=== PATIENT | female | born 1980 | race Caucasian/White ===

== ENCOUNTER 2016-09-19 06:30 | Emergency (ER) | payer MEDICAID ==
[~2016-09-19] VITALS: Ht 160 cm; Wt 75.5 kg
[~2016-09-19 06:30] MED LIST: AUG875 PO; ONDA4TAB8 PO
[2016-09-19 06:33] VITALS: Ht 160 cm; Wt 75.5 kg
[2016-09-19] MEDS ORDERED: TETRACAINE 0.5% 4 ML OPH RIGHT EYE ONE (07:00)
[2016-09-19] MEDS ORDERED: HYDROCODONE/APAP (5/325) TAB PO ONE (07:00)
[2016-09-19] MEDS ORDERED: FLUORESCEIN STRIP RIGHT EYE ONE (07:00)
--- NOTE | 2016-09-19 07:10 | ERD ---
ER Documentation Chief Complaint Date/Time DATE: 09/19/16 TIME: 07:07 Chief Complaint PT presents with R eye erythema and pain after eye injury 3 days ago. HPI Is a 35-year-old female who presents the emergency department today complaining of right eye pain and redness for the past 3 days. Patient states that she was doing some stretching material to the underside of a chair when she accidentally let go and it hit her in the eye. States she has some blurred vision. Denies any previous trauma, fevers or chills ROS All systems reviewed and are negative except as per history of present illness. Medications Home Meds Active Scripts Naproxen* (Naprosyn*) 500 Mg Tablet, 500 MG PO BID Y for PAIN AND/OR INFLAMMATION, #30 TAB Prov:MISSY COULTER PA-C 09/19/16 Hydrocodone/Acetaminophen (Downs 5-325 Tablet) 1 Each Tablet, 1 TAB PO Q6H Y for PAIN, #7 TAB Prov:MISSY COULTER PA-C 09/19/16 Erythromycin (Erythromycin Opth) 3.5 Gm Oint..gm., 1 APPLIC RIGHT EYE QID for 7 Days, #1 Prov:MISSY COULTER PA-C 09/19/16 Ondansetron Hcl* (Zofran*) 4 Mg Tablet, 4 MG PO Q6H Y for NAUSEA AND OR VOMITING for 10 Days, TAB Prov:DONI DIAZHAMMAD F. 12/15/13 Amoxicillin-Clavulanate K* (Augmentin*) 875 Mg Tab, 875 MG PO BID for 7 Days, TAB Prov:CHRISTIAN DIAZD F. 12/15/13 Allergies Allergies: Coded Allergies: No Known Drug Allergy (Verified Allergy, Unknown, 12/11/13) PMhx/Soc Medical and Surgical Hx: pt denies Medical Hx, pt denies Surgical Hx History of Surgery: No Anesthesia Reaction: No Hx Neurological Disorder: No Hx Respiratory Disorders: No Hx Cardiac Disorders: No Hx Psychiatric Problems: No Hx Miscellaneous Medical Probl: No Hx Alcohol Use: No Hx Substance Use: No Hx Tobacco Use: No Physical Exam Vitals Vital Signs Date Time Temp Pulse Resp B/P Pulse Ox O2 Delivery O2 Flow Rate FiO2 09/19/16 06:33 98.9 76 18 123/77 97 Physical Exam Const: No acute distress Head: Atraumatic Eyes: Right eye with conjunctival erythema. PERRLA. EOM intact. Light sensitive. ENT: Normal External Ears, Nose and Mouth. Neck: Full range of motion..~ No meningismus. Resp: Clear to auscultation bilaterally Cardio: Regular rate and rhythm, no murmurs Skin: No petechiae or rashes Neur: Awake and alert Psych: Normal Mood and Affect Results 24 hrs Current Medications Medications (Trade) Dose Ordered Sig/Cristóbal Route PRN Reason Start Time Stop Time Status Last Admin Dose Admin Tetracaine HCl (Tetracaine 0.5% Steri-Unit Sobia) 1 drop ONCE ONCE RIGHT EYE 09/19/16 07:00 09/19/16 07:01 DC 09/19/16 07:05 Fluorescein Sodium (Yrkzs-X-Ugiad) 1 strip ONCE ONCE RIGHT EYE 09/19/16 07:00 09/19/16 07:01 DC 09/19/16 07:05 Acetaminophen/ Hydrocodone Bitart (Downs (5/325)) 1 tab ONCE ONCE PO 09/19/16 07:00 09/19/16 07:01 DC 09/19/16 07:05 DIAGNOSTIC IMAGING REPORT Patient: CLARE PAINTER : 1980 Age: 35 Sex: F MR #: [id number] DOS: 09/19/16 0705 Ordering MD: MISSY COULTER PA-C Location: [facility] Room/Bed: PROCEDURE: Ultrasound soft tissue non-vascular. CLINICAL INDICATION: trauma. TECHNIQUE: Targeted sonographic evaluation of the area of clinical interest in the right orbit was performed using a high-frequency transducer using razo scale techniques. COMPARISON: None. FINDINGS: Targeted sonographic evaluation of the right orbit demonstrates no definite foreign body. The orbit appears intact. No sonographic evidence of retinal detachment. IMPRESSION: No foreign body is detected by ultrasound. No sonographic evidence of retinal detachment. RPTAT: EE .Jeramy Crawford MD, MD Date Time Electronically viewed and signed by .Jeramy Crawford MD, MD on 09/19/2016 07:50 .C/ CC: MISSY COULTER PA-C Procedures/MDM This a 35-year-old female who presents to the emergency department today complaining of right eye pain and redness for the past 3 days after hitting herself in the eye with some stretchy material that she was going to the underside of the chair. Given patient's trauma did obtain a soft tissue ultrasound of the patient's right eye as well as perform visual acuity and a floor seen eye stain with a Boyle lamp Visual acuity right eye 20/50 Left eye 20/50 Bilateral 20/50 Soft tissue ultrasound shows no foreign body detected by ultrasound. There is no sonographic evidence of retinal detachment. Orbits appear intact. Flouroscein eye stain with a Boyle lamp shows possible corneal abrasion along the medial aspect. Patient given a prescription for erythromycin. Patient was also given Downs here in the emergency department and pain improved. She will be given a short course for home in addition to Naprosyn. She is instructed to make an appointment at [facility]. I do have low suspicion for acute narrow angle glaucoma, hyphema, globe rupture, conjunctivitis, foreign body, uveitis At this time the patient is stable for discharge and outpatient management. Patient should follow up with their PCP in the next 1-2 days. They may return to the emergency department sooner for any persistent or worsening of symptoms. Patient understood and agreed with the plan. Departure Diagnosis: Primary Impression: Eye injury Encounter type: initial encounter Laterality: right Qualified Code: S05.91XA - Right eye injury, initial encounter Condition: Fair MISSY COULTER PA-C Sep 19, 2016 07:10
--- NOTE | 2016-09-19 07:45 | RADRPT ---
PROCEDURE: Ultrasound soft tissue non-vascular. CLINICAL INDICATION: trauma. TECHNIQUE: Targeted sonographic evaluation of the area of clinical interest in the right orbit was performed using a high-frequency transducer using razo scale techniques. COMPARISON: None. FINDINGS: Targeted sonographic evaluation of the right orbit demonstrates no definite foreign body. The orbit appears intact. No sonographic evidence of retinal detachment. IMPRESSION: No foreign body is detected by ultrasound. No sonographic evidence of retinal detachment. RPTAT: EE .Jeramy Crawford MD, Date Time Electronically viewed and signed by .Jeramy Crawford MD, MD on 09/19/2016 07:50 .C/
[2016-09-19] MEDS ORDERED: HYDR-906 PO (08:38)
[2016-09-19] MEDS ORDERED: ERYT1OIN6 RIGHT EYE (08:38)
[2016-09-19] MEDS ORDERED: NAPR-260 PO (08:39)
== END 2016-09-19 09:02 | disposition home or self-care (01) ==
LOC: FTE 06:30
DX: S05.91XA Unspecified injury of right eye and orbit, initial encounter (principal); W22.8XXA Striking against or struck by other objects, initial encounter; Y92.9 Unspecified place or not applicable
CPT/HCPCS: 76536; Z7502; Z7610

== ENCOUNTER 2017-01-20 08:15 | Emergency (ER) | payer MEDICAID ==
[~2017-01-20] VITALS: Ht 162.6 cm; Wt 77.3 kg
[~2017-01-20 08:15] MED LIST changes: +ERYT1OIN6 RIGHT EYE; +HYDR-906 PO; +NAPR-260 PO
[2017-01-20 08:17] VITALS: Ht 162.6 cm; Wt 77.3 kg
--- NOTE | 2017-01-20 08:30 | ERD ---
ER Documentation Chief Complaint Chief Complaint Pt with fever, ST, vomiting and AP X 3 days. HPI 36-year-old female, previously healthy, since the emergency department complaining of 3 days with worsening of sore throat, subjective fever and headache. Sore throat is described as sharp, constant 8/10. No cough or upper respiratory symptoms. No treatment attempted at this time ROS SYSTEMIC symptoms: fever, chills, no night sweats, no weight loss EYE symptoms: No blurred vision, no eye discharge OTOLARYNGEAL symptoms: No hearing loss. No ear pain, + sore throat CARDIOVASCULAR symptoms: No chest pain or discomfort, no palpitations. PULMONARY symptoms: No dyspnea, no cough, no wheezing. GASTROINTESTINAL symptoms: No abdominal pain, no nausea, no vomiting, no diarrhea MUSCULOSKELETAL symptoms: No arthralgias, no muscle aches. NEUROLOGY symptoms: No confusion, no syncope, no numbness or tingling. SKIN: No rashes Medications Home Meds Active Scripts Ibuprofen* (Ibuprofen*) 600 Mg Tablet, 600 MG PO Q8 Y for PAIN AND/OR INFLAMMATION, #20 TAB Prov:ISAIAS OBANDO MD 01/20/17 Azithromycin* (Zithromax*) 250 Mg Tablet, 250 MG PO .JillianPACK DIRECTED, #6 TAB TAKE 500 MG (2 TABS) THE FIRST DAY THEN 250 MG (1 TAB) DAYS 2-5 Prov:ISAIAS OBANDO MD 01/20/17 Naproxen* (Naprosyn*) 500 Mg Tablet, 500 MG PO BID Y for PAIN AND/OR INFLAMMATION, #30 TAB Prov:MISSY COULTER PA-C 09/19/16 Hydrocodone/Acetaminophen ([place] 5-325 Tablet) 1 Each Tablet, 1 TAB PO Q6H Y for PAIN, #7 TAB Prov:MISSY COULTER PA-C 09/19/16 Erythromycin (Erythromycin Opth) 3.5 Gm Oint..gm., 1 APPLIC RIGHT EYE QID for 7 Days, #1 Prov:MISSY COULTER PA-C 09/19/16 Ondansetron Hcl* (Zofran*) 4 Mg Tablet, 4 MG PO Q6H Y for NAUSEA AND OR VOMITING for 10 Days, TAB Prov:YOSEF DIAZ 12/15/13 Amoxicillin-Clavulanate K* (Augmentin*) 875 Mg Tab, 875 MG PO BID for 7 Days, TAB Prov:YOSEF DIAZ. 12/15/13 Allergies Allergies: Coded Allergies: No Known Drug Allergy (Verified Allergy, Unknown, 12/11/13) PMhx/Soc History of Surgery: No Anesthesia Reaction: No Hx Neurological Disorder: No Hx Respiratory Disorders: No Hx Cardiac Disorders: No Hx Psychiatric Problems: No Hx Miscellaneous Medical Probl: No Hx Alcohol Use: No Hx Substance Use: No Hx Tobacco Use: No Physical Exam Vitals Vital Signs Date Time Temp Pulse Resp B/P Pulse Ox O2 Delivery O2 Flow Rate FiO2 01/20/17 08:17 102.3 131 18 129/71 98 Physical Exam Patient is in moderate distress, vital signs showed fever and tachycardia. Alert and fully oriented. EYES: PERRLA, EOMI, Sclera and conjunctiva appear normal. EARS: Canals clear, tympanic membranes WNL THROAT: Erythematous oropharynx, tonsils enlarged with exudate NECK: Supple, No lymphadenopathy. Full ROM without pain or tenderness. HEART: RRR, no rubs, murmurs, clicks or gallops. LUNGS: Clear to auscultation. ABDOMEN: Soft, non-tender without masses or hepatosplenomegaly. EXTREMITIES: No edema bilaterally. BACK: Full ROM, no deformity, normal back exam NEURO: Cranial nerves grossly intact, no motor or sensory deficit Result Diagram: 01/20/1728 01/20/17 0915 Results 24 hrs Laboratory Tests Test 01/20/17 09:04 01/20/17 09:15 01/20/17 09:28 Urine Color YELLOW Urine Clarity SLIGHTLY CLOUDY Urine pH 7.0 Urine Specific [place] 1.020 Urine Ketones NEGATIVEmg/dL Urine Nitrite NEGATIVEmg/dL Urine Bilirubin NEGATIVEmg/dL Urine Urobilinogen 1+mg/dL Urine Leukocyte Esterase 2+Mason/ul Urine Microscopic RBC 3/HPF Urine Microscopic WBC 4/HPF Urine Squamous Epithelial Cells MODERATE/HPF Urine Hemoglobin 1+mg/dL Urine Glucose NEGATIVEmg/dL Urine Total Protein NEGATIVEmg/dl Sodium Level 141mmol/L Potassium Level 3.9mmol/L Chloride Level 102mmol/L Carbon Dioxide Level 25mmol/L Anion Gap 18 Blood Urea Nitrogen 13mg/dl Creatinine 0.66mg/dl Glucose Level 130mg/dl Calcium Level 9.9mg/dl Total Bilirubin 1.3mg/dl Direct Bilirubin 0.00mg/dl Indirect Bilirubin 1.3mg/dl Aspartate Amino Transf (AST/SGOT) 71IU/L Alanine Aminotransferase (ALT/SGPT) 151IU/L Alkaline Phosphatase 87IU/L Total Protein 8.5g/dl Albumin 4.7g/dl Globulin 3.80g/dl Albumin/Globulin Ratio 1.23 Lipase 48U/L White Blood Count 15.910^3/ul Red Blood Count 4.9110^6/ul Hemoglobin 13.6g/dl Hematocrit 40.7% Mean Corpuscular Volume 82.9fl Mean Corpuscular Hemoglobin 27.7pg Mean Corpuscular Hemoglobin Concent 33.4g/dl Red Cell Distribution Width 13.2% Platelet Count 97841^3/UL Mean Platelet Volume 10.8fl Neutrophils % 90.2% Lymphocytes % 5.3% Monocytes % 3.5% Eosinophils % 0.1% Basophils % 0.3% Nucleated Red Blood Cells % 0.0/100WBC Neutrophils # 14.410^3/ul Lymphocytes # 0.910^3/ul Monocytes # 0.610^3/ul Eosinophils # 0.010^3/ul Basophils # 0.010^3/ul Nucleated Red Blood Cells # 0.010^3/ul Current Medications Medications (Trade) Dose Ordered Sig/Cristóbal Route PRN Reason Start Time Stop Time Status Last Admin Dose Admin Sodium Chloride (NS) 250 ml @ 250 mls/hr Q1H STAT IV 01/20/17 08:54 01/20/17 09:53 DC 01/20/17 09:13 Ketorolac Tromethamine 30 mg 30 mg ONCE STAT IV 01/20/17 08:54 01/20/17 08:56 DC 01/20/17 09:11 Ceftriaxone Sodium (Rocephin) 50 ml @ 100 mls/hr ONCE ONCE IVPB 01/20/17 10:30 01/20/17 10:59 DC 01/20/17 10:23 Procedures/MDM 36y/o female patient no medical, presents to the ED c/o fever, sore throat and headache for 4 days. Vital signs showed a tachycardia and fever, Physical exam unremarkable except for tonsillar exudate. Differential diagnosis include but not limited to: Acute infectious tonsillitis, upper respiratory infection pharyngitis,asthma, allergies. No suspicion for tonsillar abscess. Pertinent Data: Labs: CBC: WBC 15.9, CMP: normal kidney and liver function, normal electrolytes. Lipase: normal Rapid strep test positive Physical examination and clinical presentation consistent most likely with acute suppurative tonsillitis secondary to strep infection. During the ED course the patient remained stable, no new complaints. The patient received treatment with IV fluids, ceftriaxone and Toradol presenting overall improvement of the symptoms. Results and clinical impression discussed with patient who agrees with management. The patient is stable to be treated outpatient and will be discharged home with a Rx for ibuprofen and azithromycin. Side effects of prescribed medications (headache, rash, nausea, vomiting, diarrhea) were reviewed. The patient was instructed to follow up with the primary care provider in the next 48h. If symptoms persist, worsen or new symptoms develop, then patient should return to the ED immediately. Instructions explained and given to patient in Estonian with acknowledgment and demonstrated understanding. Disclaimer: Inadvertent spelling and grammatical errors are likely due to EHR/ dictation software use and do not reflect on the overall quality of patient care. Also, please note that the electronic time recorded on this note does not necessarily reflect the actual time of the patient encounter. Departure Diagnosis: Primary Impression: Fever Additional Impressions: Tachycardia Strep pharyngitis Condition: Stable Additional Instructions: Muchas rosibel por [facility] para alcala servicio. Esperamos que en alcala visita a la sakshi de emergencia alcala problema medico haya sido solucionado y que se sienta mucho mejor. Para estar seguros que alcala mejoria sigue en proceso, le pedimos el favor de hacer zonia lissa de seguimiento medico con alcala doctor primario en los proximos 2-4 joe. Lleve con usted estos documentos y las medicinas recetadas. Si crispin sintomas empeoran y no puede adan a alcala doctor, por favor regrese a sakshi de emergencia. En sharona que usted no tenga un mdico de atencin primaria: Llame al mdico o clnica comunitaria de referencia que aparece abajo tra las horas de consultorio para hacer zonia lissa para que le vean. CLINICAS: [facility] [phone] [facility] [phone] [facility] [phone] [address] [place] [id number] [phone] [place] [id number] [phone] [facility]. [phone] ISAIAS RUVALCABA MD Jan 20, 2017 08:30
[2017-01-20] MEDS ORDERED: SOD CHLORIDE 0.9% 250 ML IV STA ×2 (08:54→14:45)
[2017-01-20] MEDS ORDERED: KETOROLAC 30 MG INJ IV STA (08:54)
[2017-01-20 09:37] LABS: ADD UMIC YES; UR ASCORBIC ACID NEGATIVE (NEGATIVE); UR BILIRUBIN (Dip) NEGATIVE (NEGATIVE); UR BLOOD (Dip) 1+ mg/dL (NEGATIVE); UR CLARITY SLIGHTLY CLOUDY (CLEAR); UR COLOR YELLOW (YELLOW); UR GLUCOSE (Dip) NEGATIVE (NEGATIVE); UR KETONES (Dip) NEGATIVE (NEGATIVE); UR LEUKOCYTE ESTERASE (Dip) 2+ Leu/ul (NEGATIVE); UR NITRITE (Dip) NEGATIVE (NEGATIVE); UR RBC 3 /HPF (0-5); UR SQUAMOUS EPITHELIAL CELL MODERATE /HPF (FEW); UR TOTAL PROTEIN (Dip) NEGATIVE (NEGATIVE); UR UROBILINOGEN (Dip) 1+ mg/dL (NEGATIVE)
[2017-01-20 09:47] LABS: BASOPHILS % 0.3 % (0.0-2.0); EOSINOPHILS % 0.1 % (0.0-7.0); HEMATOCRIT 40.7 % (37.0-47.0); HEMOGLOBIN 13.6 g/dl (12.0-16.0); LYMPHOCYTES # 0.9 10^3/ul (0.8-2.9); LYMPHOCYTES % 5.3 % (15.0-51.0); MEAN CORPUSCULAR HEMOGLOBIN 27.7 pg (29.0-33.0); MEAN CORPUSCULAR HGB CONC 33.4 g/dl (32.0-37.0); MEAN CORPUSCULAR VOLUME 82.9 fl (82.0-101.0); MEAN PLATELET VOLUME 10.8 fl (7.4-10.4); MONOCYTE # 0.6 10^3/ul (0.3-0.9); MONOCYTES % 3.5 % (0.0-11.0); NEUTROPHIL # 14.4 10^3/ul (1.6-7.5); NEUTROPHILS % 90.2 % (39.0-77.0); PLATELET COUNT 219 10^3/UL (140-415); RED BLOOD COUNT 4.91 10^6/ul (4.20-5.40); RED CELL DISTRIBUTION WIDTH 13.2 % (11.5-14.5); WHITE BLOOD COUNT 15.9 10^3/ul (4.8-10.8)
[2017-01-20 10:10] LABS: ALBUMIN 4.7 g/dl (3.3-4.9); ALBUMIN/GLOBULIN RATIO 1.23; BILIRUBIN,INDIRECT 1.3 mg/dl (0-1.1); BILIRUBIN,TOTAL 1.3 mg/dl (0.2-1.3); CALCIUM 9.9 mg/dl (8.4-10.2); CREATININE 0.66 mg/dl (0.44-1.00); POTASSIUM 3.9 mmol/L (3.5-5.1); TOTAL PROTEIN 8.5 g/dl (6.1-8.1)
[2017-01-20] MEDS ORDERED: CEFTRIAXONE 1 GM/50 ML (PMX) 50 ML IVPB ONE (10:30)
[2017-01-20] MEDS ORDERED: AZIT250T94 PO (12:00)
[2017-01-20] MEDS ORDERED: IBUP-1542 PO (12:00)
[2017-01-20] MEDS ORDERED: ACETAMINOPHEN 500 MG TAB PO STA ×2 (12:13→12:36)
[2017-01-20] MEDS ORDERED: SOD CHLORIDE 0.9% 500 ML IV STA (12:36)
[2017-01-20] MEDS ORDERED: morphine 2 MG INJ IV STA ×2 (13:53→14:45)
--- NOTE | 2017-01-20 15:40 | EN ---
Date/Time of Note Date/Time of Note DATE: 01/20/17 TIME: 15:40 ER Progress Note Current Medications Medications (Trade) Dose Ordered Sig/Cristóbal Route PRN Reason Start Time Stop Time Status Last Admin Dose Admin Sodium Chloride (NS) 250 ml @ 250 mls/hr Q1H STAT IV 01/20/17 08:54 01/20/17 09:53 DC 01/20/17 09:13 Ketorolac Tromethamine 30 mg 30 mg ONCE STAT IV 01/20/17 08:54 01/20/17 08:56 DC 01/20/17 09:11 Ceftriaxone Sodium (Rocephin) 50 ml @ 100 mls/hr ONCE ONCE IVPB 01/20/17 10:30 01/20/17 10:59 DC 01/20/17 10:23 Acetaminophen 500 mg 500 mg ONCE STAT PO 01/20/17 12:13 01/20/17 12:15 DC 01/20/17 12:17 Sodium Chloride (NS) 500 ml @ 500 mls/hr Q1H STAT IV 01/20/17 12:36 01/20/17 13:35 DC 01/20/17 12:38 Acetaminophen (Tylenol Tab) 500 mg ONCE STAT PO 01/20/17 12:36 01/20/17 12:38 DC 01/20/17 12:41 Morphine Sulfate (morphine) 2 mg ONCE STAT IV 01/20/17 13:53 01/20/17 13:55 DC 01/20/17 14:02 Morphine Sulfate 1 mg 1 mg ONCE STAT IV 01/20/17 14:45 01/20/17 14:48 DC 01/20/17 15:08 Sodium Chloride (NS) 250 ml @ 250 mls/hr Q1H STAT IV 01/20/17 14:45 01/20/17 15:44 DC 01/20/17 15:08 14:30 Progress note: S: The patient refers feeling better, except for persistent, throbbing, frontal headache, vital signs rechecked noticing continuos fever, therefore, the discharge was on hold. The patient received 1lt NS bolus, 4mg of morphine IV and acetaminophen 1 gm presenting overall improvement of her symptoms. The patient was discharged in stable condition with strict precautions for worsening of symptoms. ISAIAS OBANDO MD Jan 20, 2017 15:40
[2017-01-20] MEDS ORDERED: AMOX1TAB10 PO (15:50)
[2017-01-20] MEDS ORDERED: PRED20TA PO (15:50)
[2017-01-20 15:54] VITALS: BP 107/64; PULSE 113; RESP 20; TEMP 99.6
--- NOTE | 2017-01-22 08:32 | EN ---
Date/Time of Note Date/Time of Note DATE: 01/22/17 TIME: 08:24 ER Progress Note Follow up call - Visit 01/20/2017 I called the patient, refers feeling much better, no fever, no chills, no headaches. Taking the medications as directed, no side effects. The patient was instructed to return to the emergency department of symptoms and to schedule an appointment with her primary care provider in 2-4 days. ISAIAS Cardona M.D, MD Jan 22, 2017 08:32
== END 2017-01-20 15:58 | disposition home or self-care (01) ==
LOC: FTE 08:15
DX: J02.0 Streptococcal pharyngitis (principal); R00.0 Tachycardia, unspecified
CPT/HCPCS: 36415; 80053; 81001; 83690; 85025; 87400; 87880; 96374; 96375; 96376; J0696; J1885; J2270; J7040; Z7502; Z7610

== ENCOUNTER 2017-05-23 08:28 | Emergency (ER) | END 2017-05-23 11:24 | disposition home or self-care (01) ==